=== PATIENT | female | born 1950 | race American Indian/Alaskan Native ===

== ENCOUNTER 2016-09-07 08:55 | Day surgery (SDC) | payer MEDICARE ==
[2015-05-18 18:49] VITALS: BMI 26.9
--- NOTE | 2016-09-07 10:50 | PCM.SURG1 ---
Surgeon's Initial Post Op Note - Surgeon's Notes Surgeon: Jacky Ralph MD Database Modeler: NONE Type of Anesthesia: Local Pre-Operative Diagnosis: Thyroid nodules Operative Findings: Heteregenous left and right thyroid gland with multiple nodules. Post-Operative Diagnosis: Thyroid nodules Operation Performed: US guided FNA of right and left thyroid nodules Specimen/Specimens Removed: 25 g FNA x 4 passes per nodule Estimated Blood Loss: EBL {In ML}: 0 Blood Products Given: N/A Drains Used: No Drains Post-Op Condition: Good Date of Surgery/Procedure: 09/07/16 Time of Surgery/Procedure: 10:40
--- NOTE | 2016-09-07 10:52 | CP.SDSHP ---
Same Day Surgery H & P - History Proposed Procedure: Thyroid FNA Pre-Op Diagnosis: Thyroid nodules - Allergies Allergies: Allergies No Known Allergies Allergy (Verified 04/09/13 10:04) - Physical Exam Vital Signs: Vital Signs 09/07/16 09:14 Temperature 97.2 F L Pulse Rate 70 Respiratory 20 Rate Blood Pressure 158/77 H O2 Sat by Pulse 98 Oximetry Mental Status: Alert & Oriented x3 - Impression Impression: Pt with heterogenous thyroid referred for US guided FNA of dominant right thyroid nodules. Pt. Evaluated Today:Candidate for Anesthesia & Procedure: No - Date & Time Date: 09/07/16 Time: 10:15 Short Stay Discharge - Short Stay Discharge Admitting Diagnosis/Reason for Visit: NONTOXIC MULTINODULAR GOITER Disposition: HOME/ ROUTINE
[2016-09-07 11:11] VITALS: BP 136/70; PULSE 63; RESP 18; TEMP 98; O2SAT 100
--- NOTE | 2016-09-08 10:19 | US ---
PROCEDURE: Date of Procedure: 09/07/2016 PROCEDURE: 1. Ultrasound guided FNA of right thyroid nodules, CPT 22081 2. Ultrasound guidance for FNA, [address]42 Medications:4cc 1% Lidocaine HISTORY: Enlarged right thyroid nodules. TECHNIQUE: Following informed consent and procedure time-out, a limited ultrasound patient's neck confirmed a heterogeneous thyroid gland with multiple enlarged thyroid nodules. Dominant thyroid nodule measuring 3.5 centimeter in the upper pole and a 2.4 centimeter nodule in the lower pole was selected for fine aspiration. After the patient's neck was prepped and draped in the usual sterile fashion, the skin was anesthetized with 1% lidocaine. Ultrasound-guided fine needle aspiration was then performed of the dominant upper pole right thyroid nodule followed by fine aspiration of the lower pole thyroid nodule. A total of 4 passes were made into each nodule with 25 gauge needle under ultrasound guidance. The FNA specimen was sent for routine pathology. Post biopsy ultrasound showed no hematoma. IMPRESSION: Ultrasound-guided FNA of the dominant right thyroid upper pole nodule and lower pole thyroid nodule. .
== END 2016-09-07 11:12 | disposition home or self-care (01) ==
LOC: C.SPRAD 08:55
PROVIDERS: ATTEND Radiology Vascular & Interventional Radiology
DX: E04.2 Nontoxic multinodular goiter (principal); I10 Essential (primary) hypertension; R73.09 Other abnormal glucose

== ENCOUNTER 2017-04-23 13:01 | Emergency (ER) | payer MEDICARE ==
[2017-04-23 13:02] VITALS: BMI 26.9
[2017-04-23 14:02] VITALS: O2SAT 98
--- NOTE | 2017-04-23 16:21 | C.PDOC ---
History Of Present Illness Of note patient waiting for over 2 hours in the waiting area prior to my initial evaluation Patient brought to the ER for evaluation following syncopal episode at approximately 0600 today. States she has not been eating well, with cough for the past several days. Taking OTC cough meds. Patient awoke today feeling nauseous and near-syncope. Revived with smelling salts. (+) Witnessed syncope after standing up from the bed, and sustained left forehead injury. At present patient denies any nausea or recurrent dizziness. No associated chest pain, palpitations, or headache. 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 EXAM NAD HEENT ATRAUM NEURO INTACT LUNGS CTA B/L NO W/R/R REMAINDER NEG Time Seen by Provider: 04/23/17 16:10 Chief Complaint (Nursing): Syncope History Per: Patient History/Exam Limitations: no limitations Onset/Duration Of Symptoms: Hrs Current Symptoms Are (Timing): Better Activity At Onset Of Symptoms: Lying Past Medical History Reviewed: Historical Data, Nursing Documentation, Vital Signs Vital Signs: Last Vital Signs Temp 98.2 F 04/23/17 17:41 Pulse 70 04/23/17 17:41 Resp 18 04/23/17 17:41 BP 163/85 H 04/23/17 17:41 Pulse Ox 98 04/23/17 17:41 - Medical History PMH: HTN, Hypercholesterolemia, Hyperlipidemia Other PMH: Goiter, thyroid nodules - [facility] Procedures DX ULTRASOUND-HEAD/NECK (04/09/13) PERCUTAN NEEDLE BX OF THYROID GLAND (04/09/13) Family History: States: No Known Family Hx - Social History Hx Tobacco Use: No Hx Alcohol Use: No Hx Substance Use: No - Immunization History Hx Tetanus Toxoid Vaccination: No Hx Influenza Vaccination: No Hx Pneumococcal Vaccination: No Review Of Systems Except As Marked, All Systems Reviewed And Found Negative. Cardiovascular: Negative for: Chest Pain, Palpitations Gastrointestinal: Negative for: Nausea (now resolved) Neurological: Positive for: Other (SYNCOPE X1 EPISODE). Negative for: Headache , Dizziness Physical Exam - Physical Exam Appears: Non-toxic, No Acute Distress Skin: Normal Color, Warm Head: Atraumatic Eye(s): bilateral: Normal Inspection, PERRL, EOMI Ear(s): Bilateral: Normal Nose: Normal Oral Mucosa: Moist Neck: Normal ROM, Other (+ Goiter) Chest: Symmetrical Cardiovascular: Rhythm Regular Respiratory: Normal Breath Sounds (clear to auscultation bilaterally), No Rales , No Rhonchi, No Wheezing Extremity: Bilateral: Atraumatic, Normal Color And Temperature, Normal ROM Neurological/Psych: Oriented x3, Normal Speech, Normal Cranial Nerves, Cerebellar Signs (intact), Normal Motor, Normal Sensation, No Other (focal deficits) Gait: Steady ED Course And Treatment - Laboratory Results Result Diagrams: 04/23/17 16:55 04/23/17 16:55 ECG: Interpreted By Me ECG Rhythm: Sinus Rhythm Rate From EC O2 Sat by Pulse Oximetry: 98 Pulse Ox Interpretation: Normal - Radiology CXR: Interpreted by Me, Viewed By Me CXR Interpretation: Yes: Other (No acute changes since 2012) - CT Scan/US CT Head Other Rad Studies (CT/US): Read By Radiologist, Radiology Report Reviewed CT/US Interpretation: FINDINGS: HEMORRHAGE: No intracranial hemorrhage. BRAIN : No mass effect or edema. Mild scattered white matter hypodensities, which are nonspecific, but often seen with chronic microvascular ischemic disease. Please note that MRI with diffusion imaging is more sensitive in the detection of acute ischemic event. VENTRICLES: No hydrocephalus. CALVARIUM: Unremarkable. PARANASAL SINUSES: Unremarkable as visualized. No significant inflammatory changes. MASTOID AIR CELLS: Unremarkable as visualized. No inflammatory changes. OTHER FINDINGS: None. IMPRESSION: No acute intracranial pathology identified. Progress - Re-Evaluation Re-evaluation Note: 04/23/17 17:21 D/W DR ANDERSEN AWARE OF ER FINDINGS AND AGREES W PLAN 04/23/17 17:46 EXAM UNCH FROM [facility]IOR. AMBUL WO DIFF, NO RECUR DIZZY. FU OFFICE TOMORROW - Data Reviewed Data Reviewed: Lab, Diagnostic imaging, EKG, Old records Medical Decision Making Medical Decision Making: Time: 16:33 Initial Plan: * Labs * EKG * Chest x-ray * IV fluids * CT Head W/O contrast Disposition Counseled Patient/Family Regarding: Studies Performed, Diagnosis, Need For Followup - Disposition Referrals: Shelly Andersen MD [Staff Provider] - Disposition: HOME/ ROUTINE Disposition Time: 17:48 Condition: IMPROVED Instructions: Syncope (Fainting) Forms: Digital Guardian (Tajik) - Clinical Impression Clinical Impression: Syncope - Scribe Statement The provider has reviewed the documentation as recorded by the Scribe Karine Jacob Provider Attestation: All medical record entries made by the Marcos were at my direction and personally dictated by me. I have reviewed the chart and agree that the record accurately reflects my personal performance of the history, physical exam, medical decision making, and the department course for this patient. I have also personally directed, reviewed, and agree with the discharge instructions and disposition.
[2017-04-23] MEDS ORDERED: Sodium Chloride 0.9% 1,000 ML IV ONE (16:34)
[2017-04-23 16:58] LABS: BASO % 0.7 % (0.0-2.0); EOS % 0.2 % (0.0-4.0); HEMOGLOBIN 13.3 g/dL (11.0-16.0); LYMPH % 37.1 % (20.0-40.0); MEAN CELL VOLUME 92.6 fL (81.0-99.0); MEAN CORPUSCULAR HEMOGLOBIN 30.6 pg (27.0-31.0); MEAN CORPUSCULAR HGB CONC 33.1 g/dL (33.0-37.0); MEAN PLATELET VOLUME 9.8 fL (7.2-11.7); MONO # 1.2 K/uL (0.0-0.8); MONO % 22.2 % (0.0-10.0); NEUT # 2.1 K/uL (1.8-7.0); NEUT % 39.8 % (50.0-75.0); NRBC % 0.1 % (0.0-2.0); PLATELET COUNT 199 K/uL (130-400); RBC 4.36 Mil/uL (3.80-5.20); RED CELL DISTRIBUTION WIDTH 13.5 % (11.5-14.5); WHITE BLOOD COUNT 5.3 K/uL (4.8-10.8)
--- NOTE | 2017-04-23 17:07 | RAD ---
HISTORY: [facility] COMPARISON: Chest x-ray performed 03/02/12 TECHNIQUE: Chest PA and lateral FINDINGS: LUNGS: No focal consolidation. Please note that chest x-ray has limited sensitivity for the detection of pulmonary masses. PLEURA: No significant pleural effusion identified. No definite pneumothorax . CARDIOVASCULAR: Cardiomegaly. OSSEOUS STRUCTURES: Marked thoracolumbar scoliosis. VISUALIZED UPPER ABDOMEN: Unremarkable. OTHER FINDINGS: None. IMPRESSION: Cardiomegaly.
[2017-04-23 17:11] LABS: ALB/GLOB RATIO 1.1 (1.0-2.1); ALBUMIN 4.4 g/dL (3.5-5.0); ALT/SGPT 36 U/L (9-52); AST/SGOT 42 U/L (14-36); BLOOD UREA NITROGEN 11 mg/dL (7-17); CALCIUM 9.7 mg/dl (8.6-10.4); GFR AFRICAN-AMERICAN > 60; GFR NON-AFRICAN AMERICAN > 60
[2017-04-23] MEDS ORDERED: Sodium Chloride 0.9% 1,000 ML ONE (17:20)
--- NOTE | 2017-04-23 17:31 | CT ---
PROCEDURE: CT HEAD WITHOUT CONTRAST. HISTORY: SYNCOPE L FOREHEAD INJURY COMPARISON: None available. TECHNIQUE: Axial computed tomography images were obtained through the head/brain without intravenous contrast. Radiation dose: Total exam DLP = 827.72 mGy-cm. This CT exam was performed using one or more of the following dose reduction techniques: Automated exposure control, adjustment of the mA and/or kV according to patient size, and/or use of iterative reconstruction technique. FINDINGS: HEMORRHAGE: No intracranial hemorrhage. BRAIN: No mass effect or edema. Mild scattered white matter hypodensities, which are nonspecific, but often seen with chronic microvascular ischemic disease. Please note that MRI with diffusion imaging is more sensitive in the detection of acute ischemic event. VENTRICLES: No hydrocephalus. CALVARIUM: Unremarkable. PARANASAL SINUSES: Unremarkable as visualized. No significant inflammatory changes. MASTOID AIR CELLS: Unremarkable as visualized. No inflammatory changes. OTHER FINDINGS: None. IMPRESSION: No acute intracranial pathology identified.
[2017-04-23 17:41] VITALS: BP 163/85; PULSE 70; RESP 18; TEMP 98.2
[2017-04-23 17:55] LABS: BASOPHIL 1 % (0-2); EOSINOPHIL 1 % (0-4); LYMPHOCYTE 32 % (20-40); MONOCYTE 21 % (0-10); NEUTROPHIL 43 % (50-75); PLATELET ESTIMATE NORMAL (NORMAL); REACTIVE LYMPHOCYTES 2 % (0-0); TOTAL CELLS COUNTED 100
--- NOTE | 2017-04-26 22:34 | CARD ---
APPROVED REPORT EKG Measurement Heart [id number] MD [id number] <Conclusion> Normal sinus rhythm Biatrial enlargement Abnormal ECG
== END 2017-04-23 18:08 | disposition home or self-care (01) ==
LOC: C.ER 13:01
DX: R55 Syncope and collapse (principal)
CPT/HCPCS: 70450; 71046; 80053; 84484; 85025; 93005; 96360; 99285; J7040

== ENCOUNTER 2018-03-11 10:29 | Outpatient (CLI) | payer MEDICARE | END 2018-03-11 10:30 | disposition home or self-care (01) | LOC: C.DEXAIC 10:29 ==